=== PATIENT | male | born 1965 | race Caucasian/White ===

== ENCOUNTER 2019-01-08 19:02 | Emergency (ER) | payer OTHER ==
[2019-01-08 19:11] VITALS: BMI 30.5
--- NOTE | 2019-01-08 19:38 | PDOC ---
History of Present Illness - General Chief Complaint: Chest Pain Stated Complaint: CHEST PAIN Time Seen by Provider: 01/08/19 19:35 - History of Present Illness Initial Comments: 01/08/19 19:36 Mr. Huff is a 53 yo male w/ pmh of HTN, HLD, and prior CVA (s/p 2 stents approx. 6 years ago) who presents for evaluation of intermittent chest pain radiating to SONIA arms. Patient reports this has been occurring since on and off - was evaluated outpatient by temporary receptionist who added metoprolol and discussed outpatient cath to be scheduled for next week. Patient presents as pain has continued and gotten worse following eating today. The patient denies shortness of breath, headache and dizziness. Denies fever, chills, nausea, vomit, diarrhea and constipation. Denies dysuria, frequency, urgency and hematuria. Past History - Past Medical History Allergies/Adverse Reactions: Allergies Allergy/AdvReac Type Severity Reaction Status Date / Time No Known Allergies Allergy Verified 01/08/19 19:10 Home Medications: Ambulatory Orders Aspirin [ASA] 81 mg PO DAILY 09/29/12 Atorvastatin Ca [Lipitor] 80 mg PO HS 09/29/12 Lisinopril [Prinivil] 2.5 mg PO DAILY 09/29/12 Metoprolol Tartrate [Lopressor] 12.5 mg PO BID 09/29/12 Multivitamin with Minerals [Multiple Vitamin] 1 each PO DAILY 01/07/13 Warfarin Sodium [Coumadin] 5 mg PO DAILY 06/26/16 Anemia: No Asthma: No Cancer: No Cardiac Disorders: Yes (NM 2011) CVA: No COPD: No CHF: No Dementia: No Diabetes: No GI Disorders: No Disorders: No HTN: Yes Hypercholesterolemia: Yes Liver Disease: No Seizures: No Thyroid Disease: No - Surgical History Abdominal Surgery: No Appendectomy: No Cardiac Surgery: Yes (2 stents) Cholecystectomy: No Lung Surgery: No Neurologic Surgery: No - Immunization History Td Vaccination: Yes Immunization Up to Date: Yes - Suicide/Smoking/Psychosocial Hx Smoking Status: No Smoking History: Never smoked Years of Tobacco Use: 0 Have you smoked in the past 12 months: No Number of Cigarettes Smoked Daily: 0 Cigars Per Day: 0 Hx Alcohol Use: No Drug/Substance Use Hx: No Substance Use Type: None Hx Substance Use Treatment: No Review of Systems - Review of Systems Comments:: 01/08/19 19:36 GENERAL/CONSTITUTIONAL: No fever or chills. No weakness. HEAD, EYES, EARS, NOSE AND THROAT: No change in vision. No ear pain or discharge. No sore throat. CARDIOVASCULAR: +Chest pain as described. No shortness of breath RESPIRATORY: No cough, wheezing, or hemoptysis. GASTROINTESTINAL: No nausea, vomiting, diarrhea or constipation. GENITOURINARY: No dysuria, frequency, or change in urination. MUSCULOSKELETAL: No joint or muscle swelling or pain. No neck or back pain. SKIN: No rash NEUROLOGIC: No headache, vertigo, loss of consciousness, or change in strength/ sensation. ENDOCRINE: No increased thirst. No abnormal weight change HEMATOLOGIC/LYMPHATIC: No anemia, easy bleeding, or history of blood clots. ALLERGIC/IMMUNOLOGIC: No hives or skin allergy. *Physical Exam - Vital Signs Last Vital Signs Temp Pulse Resp BP Pulse Ox 97.9 F 88 18 119/67 98 01/08/19 19:05 01/08/19 19:05 01/08/19 19:05 01/08/19 19:05 01/08/19 19:05 - Physical Exam Comments: 01/08/19 19:38 GENERAL: Awake, alert, and fully oriented, in no acute distress HEAD: No signs of trauma, normocephalic, atraumatic EYES: PERRLA, EOMI, sclera anicteric, conjunctiva clear ENT: Auricles normal inspection, hearing grossly normal, nares patent, oropharynx clear without exudates. Moist mucosa NECK: Normal ROM, supple, no lymphadenopathy, JVD, or masses LUNGS: No distress, speaks full sentences, clear to auscultation bilaterally HEART: Regular rate and rhythm, normal S1 and S2, no murmurs, rubs or gallops, peripheral pulses normal and equal bilaterally. ABDOMEN: Soft, nontender, normoactive bowel sounds. No guarding, no rebound. No masses EXTREMITIES: Normal inspection, Normal range of motion, no edema. No clubbing or cyanosis. NEUROLOGICAL: Cranial nerves II through XII grossly intact. Normal speech, normal gait, no focal sensorimotor deficits SKIN: Warm, Dry, normal turgor, no rashes or lesions noted. ED Treatment Course - LABORATORY CBC & Chemistry Diagram: 01/08/19 19:55 01/08/19 19:55 Medical Decision Making - Medical Decision Making 01/08/19 20:11 Mr. Huff is a 53 yo male w/ pmh as described who presents for evaluation of symptoms concerning for ACS. Patient EKG noted to have ST elevations in V2, V3, V4 with reciprocol changes - worsened from previous EKG. Patient discussed with [facility] lithographer helper Dr. Torres for transfer for possible cath or further treatment as needed. Cardiology suggested 5000 heparin push - given. Patient consented for transfer. Patient will be transferred for further care. *DC/Admit/Observation/Transfer Diagnosis at time of Disposition: STEMI (ST elevation myocardial infarction) Qualifiers: Involved coronary artery: unspecified coronary artery Qualified Code(s): I21.3 - ST elevation (STEMI) myocardial infarction of unspecified site - Discharge Dispostion Disposition: TRANSFER ACUTE CARE/OTHER HOSP - Referrals Referrals: Emeka Redman MD [Primary Care Provider] - - Patient Instructions - Post Discharge Activity
[2019-01-08] MEDS ORDERED: ASPIRIN 81 MG CHEWABLE TABLETS PO ONE (19:44)
[2019-01-08] MEDS ORDERED: CLOPIDOGREL BISULFATE 300 MG TABLET PO ONE (19:44)
[2019-01-08] MEDS ORDERED: CLOPIDOGREL BISULFATE 300 MG TABLET ONE (19:49)
[2019-01-08] MEDS ORDERED: ASPIRIN 81 MG CHEWABLE TABLETS ONE (19:49)
--- NOTE | 2019-01-08 19:53 | PDOC ---
Attending Attestation - HPI HPI: 01/08/19 20:19 The patient is a 53 year old male with a significant PMH of HTN, CAD, OR in 2012 , s/p 2 stents in [facility] who presents to the emergency department with chest pain since 01/05 after taking his morning walk. Patient states the chest pain is exacerbated with exertion and relieved with rest. Patient noticed the chest pain intermittently since then and today the chest pain was constant since approximately 6PM. He reports the chest pain is worse with lying flat and improves with standing. He is compliant with his medications. He follows up with Dr. Holbrook, cardiology, at [facility], and is scheduled for an appointment for later this week. Comb Fixer told him he will need a cath scheduled as well. The patient denies shortness of breath, headache and dizziness. Denies fever, chills, nausea, vomit, diarrhea and constipation. Denies dysuria, frequency, urgency and hematuria. Allergies: NKA Past surgical history: s/p 2 stents Social history: No reported alcohol, drug or cigarette use. PCP: Dr. Redman - Physicial Exam PE: 01/08/19 20:24 ADULT EXAM GENERAL: Awake, alert, and fully oriented, in no acute distress HEAD: No signs of trauma EYES: PERRLA, EOMI, sclera anicteric, conjunctiva clear ENT: Auricles normal inspection, hearing grossly normal, nares patent, oropharynx clear without exudates. Moist mucosa NECK: Normal ROM, supple, no lymphadenopathy, JVD, or masses LUNGS: Breath sounds equal, clear to auscultation bilaterally. No wheezes, and no crackles HEART: Regular rate and rhythm, normal S1 and S2, no murmurs, rubs or gallops ABDOMEN: Soft, nontender, normoactive bowel sounds. No guarding, no rebound. No masses EXTREMITIES: Normal range of motion, no edema. No clubbing or cyanosis. No cords, erythema, or tenderness NEUROLOGICAL: Cranial nerves II through XII grossly intact. Normal speech, normal gait SKIN: Warm, Dry, normal turgor, no rashes or lesions noted. <Gretchen Linder - Last Filed: 01/08/19 20:25> - Resident Resident Name: Maxx Jordan - ED Attending Attestation I have performed the following: I have examined & evaluated the patient, The case was reviewed & discussed with the resident, I agree w/resident's findings & plan - Medical Decision Making 01/08/19 21:00 Pt has been having exertional CP during his AM walks , Fr, Sa, Sun. This evening pt's pain started at 6pm 10 min after eating dinner. Pain would not remit. In the ER he received asa and plavix. Pt also got a bolus of heparin 5000 Units. 01/08/19 21:02 Pt's BP and HR ok. I will not treat with beta belia. Pt's pain has remit in the ER. He will be transferred to [facility] for STEMI, as seen on current EKG; pt's family is requesting [facility] rather than [facility]. I spoke to the cardio fellow Brian. Pt autoaccepted to the ER. Cath attdg is Mauricio. 01/08/19 21:07 Pt's Primary machine engraver is Sheron from [facility], we paged him and notified his partner Cristinamerry that pt is going to [facility]; they are aware. <Judie Tinsley - Last Filed: 01/08/19 21:08>
[2019-01-08 20:04] LABS: BASO % 0.6 % (0-2.0); EOS % 1.8 % (0-4.5); HEMATOCRIT 42.6 % (35.4-49); HEMOGLOBIN 14.5 GM/dL (11.7-16.9); LYMPH % 21.5 % (8-40); MCH 29.2 pg (25.7-33.7); MCHC 34.1 g/dl (32.0-35.9); MEAN CELL VOLUME 85.6 fl (80-96); MEAN PLT VOLUME 8.2 fl (7.5-11.1); MONO % 7.8 % (3.8-10.2); NEUT % 68.3 % (42.8-82.8); PLATELET COUNT 258 K/MM3 (134-434); RBC 4.98 M/mm3 (4.00-5.60); RDW 13.2 % (11.9-15.9); WHITE BLOOD COUNT 7.1 K/mm3 (4.0-10.0)
[2019-01-08] MEDS ORDERED: HEPARIN NA (PORCINE) 5,000 UNITS/ML 1ML VIAL IVPUSH PRN (20:08)
[2019-01-08 20:20] LABS: INR 1.11 (0.83-1.09); PROTHROMBIN TIME (PATIENT) 13.1 SEC (9.7-13.0)
[2019-01-08 20:22] LABS: ACTIVATED PTT 36.7 SECONDS (25.2-36.5)
[2019-01-08 20:24] VITALS: BP 103/68; PULSE 78; TEMP 97.8
[2019-01-08 20:27] LABS: ALBUMIN 3.8 g/dl (3.4-5.0); ALK PHOS 96 U/L (45-117); ANION GAP 9 MMOL/L (8-16); BILIRUBIN,TOTAL 0.8 mg/dL (0.2-1); BLOOD UREA NITROGEN 24 mg/dL (7-18); CALCIUM 8.6 mg/dL (8.5-10.1); CHLORIDE 106 mmol/L (98-107); CO2 25 mmol/L (21-32); CREATININE 0.9 mg/dL (0.55-1.3); GLUCOSE,RANDOM 126 mg/dL (74-106); POTASSIUM 4.5 mmol/L (3.5-5.1); SGOT/AST 33 U/L (15-37); SGPT/ALT 45 U/L (13-61); SODIUM 140 mmol/L (136-145); TOT PROT 7.3 g/dl (6.4-8.2)
[2019-01-08] MEDS ORDERED: HEPARIN NA (PORCINE) 5,000 UNITS/ML 1ML VIAL ONE (20:28)
--- NOTE | 2019-01-09 15:31 | EKG ---
Test Reason : Blood Pressure : / mmHG Vent. Rate : 097 BPM Atrial Rate : 097 BPM P-R Int : 144 ms QRS Dur : 082 ms QT Int : 336 ms P-R-T Axes : 068 084 078 degrees QTc Int : 426 ms NORMAL SINUS RHYTHM ANTEROLATERAL INFARCT (CITED ON OR BEFORE 22-NOV-2011) ABNORMAL ECG WHEN COMPARED WITH ECG OF 08-JAN-2013 09:13, VENT. RATE HAS INCREASED QT HAS SHORTENED Confirmed by ORACIO RAMIREZ MD ([id number]) on 01/09/2019 3:31:13 PM Referred By: Confirmed By:ORACIO RAMIREZ MD
== END 2019-01-08 20:42 | disposition short-term general hospital (02) ==
LOC: JER 19:02
PROC: 3E033GC Introduction of Other Therapeutic Substance into Peripheral Vein, Percutaneous Approach (ICD-10-PCS; principal; 2019-01-08)
DX: I21.29 ST elevation (STEMI) myocardial infarction involving other sites (principal); I25.10 Atherosclerotic heart disease of native coronary artery without angina pectoris; I10 Essential (primary) hypertension; Z95.5 Presence of coronary angioplasty implant and graft; E78.5 Hyperlipidemia, unspecified; Z86.73 Personal history of transient ischemic attack (TIA), and cerebral infarction without residual deficits
CPT/HCPCS: 36415; 71045-TC-FY; 80053; 82550; 82553; 84484; 85025; 85610; 85730; 93005; 93010; 99284-25; J1644